=== PATIENT | male | born 1935 | race Caucasian/White ===

== ENCOUNTER 2018-01-24 10:32 | Day surgery (SDC) | payer OTHER ==
[2018-01-24] MEDS: PHENYLephrine 2.5% 15 ML OPH OPER (11:27)
[2018-01-24] MEDS: LIDOCAINE 3.5% GEL TUBE OPER (11:27)
[2018-01-24] MEDS: PROPARACAINE 0.5% 15 ML OPH OPER (11:27)
[2018-01-24] MEDS: CIPROFLOXACIN 0.3% 2.5 ML OPH OPER (11:27)
[2018-01-24] MEDS: TROPICAMIDE 1% 15 ML OPH OPER (11:27)
[2018-01-24] MEDS ORDERED: LABETALOL HCL 20MG INJ IV (12:00)
[2018-01-24] MEDS ORDERED: DIPHENHYDRAMINE 50 MG INJ IV (12:00)
[2018-01-24] MEDS ORDERED: OXYCODONE/ACETAMINOPHEN (5/325) TAB PO (12:00)
[2018-01-24] MEDS ORDERED: ALBUTEROL 0.083% (NEB) 2.5 MG/3 ML AMP HHN (12:00)
[2018-01-24] MEDS ORDERED: hydrALAzine 20 MG INJ IV (12:00)
[2018-01-24] MEDS ORDERED: ACETAMINOPHEN 500 MG TAB PO (12:00)
[2018-01-24] MEDS ORDERED: ACETAMINOPHEN 325 MG TAB PO (12:00)
[2018-01-24] MEDS ORDERED: ONDANSETRON 4 MG INJ IV (12:00)
[2018-01-24] MEDS ORDERED: CEFAZOLIN 1 GM INJ (12:21)
[2018-01-24] MEDS ORDERED: DEXAMETHASONE 4 MG/ML 1 ML INJ (12:21)
[2018-01-24] MEDS ORDERED: EPINEPHrine 1 MG INJ (12:22)
[2018-01-24] MEDS ORDERED: FENTAnyl 50 MCG/ML VIAL (12:29)
[2018-01-24] MEDS: DEXAMETHASONE 4 MG/ML 1 ML INJ INJ (12:30)
[2018-01-24] MEDS: LIDOCAINE 1% (MPF) 5 ML VIAL INJ (12:30)
[2018-01-24] MEDS: CEFAZOLIN 1 GM INJ INJ (12:30)
[2018-01-24] MEDS: SODIUM HYALURONATE 14 MG/ML SYG IO (12:30)
[2018-01-24] MEDS ORDERED: MIDAZOLAM 1 MG/ML 2 ML INJ (13:06)
[2018-01-24] MEDS ORDERED: LORAZEPAM 1 MG TAB PO (14:00)
[2018-01-24] MEDS: ACETAZOLAMIDE (SR) 500 MG CAP PO (14:27)
[2018-01-24] MEDS ORDERED: ATORVASTATIN 10 MG TAB PO (21:00)
[2018-01-25] MEDS ORDERED: LEVOTHYROXINE 25 MCG TAB PO (07:00)
[2018-01-25] MEDS ORDERED: LOSARTAN 50 MG TAB PO (09:00)
[2018-01-25] MEDS ORDERED: HYDROCHLOROTHIAZIDE 12.5 MG CAP PO (09:00)
[2018-01-25] MEDS ORDERED: [UNRECOGNIZED DRUG - OTHER] PO (09:00)
== END 2018-01-24 14:42 | disposition home or self-care (01) ==
LOC: SDS 10:32
DX: H25.11 Age-related nuclear cataract, right eye (principal); I10 Essential (primary) hypertension; E78.5 Hyperlipidemia, unspecified
CPT/HCPCS: 66984